=== PATIENT | female | born 1980 | race Caucasian/White ===

== ENCOUNTER → 2019-11-29 | Outpatient (CLI) | payer OTHER ==
[~2019-11-29] MED LIST: A-CILLIN500 MG PO; AMOXIL500 MG PO; AUGMENTIN 875 M1 TA1 PO; AUGMENTIN 875 M1 TAB PO; BACTRIM DS 8001 TA1 PO; CIPRO500 MG PO; CIPROFLOXACIN500 MG PO; CLARITIN-D 12 H1 TAB PO; CLARITIN10 MG PO; DAYPRO600 M1 PO; DIFLUCAN150 MG PO; FERROUS SULFAT325 MG PO; FLAGYL500 MG PO; FLEXERIL10 MG PO; K-DUR 20MEQ20 MEQ PO; KEFLEX500 MG PO; MOTRIN800 MG PO; NAPROSYN500 MG PO; NKHM; PEPCID20 MG PO; PERCOCET 325 MG1 TA2 PO; PERCOCET 325 MG1 TA3 PO; PRENATAL1 TA1 PO; PYRIDIUM200 MG PO; ROBAXIN750 MG PO; TRAMADOL HCL50 MG PO; TRIMOX500 MG PO; ULTRAM50 MG PO; VICODIN 5/500 505 MG PO; ZOFRAN ODT8 MG PO; ZOFRAN4 MG PO; Zofran4 MG PO
[2019-11-29 15:29] LABS: BASO % 0.5 % (0.0-1.0); EOS # 0.3 10*3/uL (0.0-0.4); EOS % 3.4 % (1.0-4.0); LYMPH # 2.3 10*3/uL (1.3-4.4); LYMPH % 30.3 % (27.0-41.0); MEAN CELL VOLUME 88.9 fl (81.0-99.0); MEAN CORPUSCULAR HGB 30.2 pg (27.0-31.0); MEAN CORPUSCULAR HGB CONC 33.9 g/dl (33.0-37.0); MEAN PLATELET VOLUME 9.7 fl (9.6-12.3); MONO # 0.4 10*3/uL (0.1-1.0); MONO % 5.5 % (3.0-9.0); NEUT # 4.6 10*3/uL (2.3-7.9); NEUT % 59.9 % (47.0-73.0); PLATELET COUNT AUTOMATED 285 10*3/uL (130-400); RED BLOOD COUNT 4.61 10*6/uL (4.10-5.10); RED CELL DISTRI WIDTH 12.5 % (0-14.5); WHITE BLOOD COUNT 7.6 10*3/uL (4.8-10.8)
[2019-11-29 15:47] LABS: ALBUMIN 3.3 gm/dl (3.1-4.5); ALKALINE PHOSPHATASE 64 U/L (45-117); BILIRUBIN, DIRECT < 0.1 mg/dL (0.0-0.2); BUN 13 mg/dl (7-24); CHLORIDE 107 mmol/L (98-107); CREATININE 1.06 mg/dL (0.55-1.02); POTASSIUM 3.9 mmol/L (3.5-5.1); SGOT/AST 18 IU/L (3-35); SGPT/ALT 23 U/L (12-78); SODIUM 137 mmol/L (136-145); TOTAL PROTEIN 7.5 gm/dL (6.4-8.2)
[2019-11-30 08:12] LABS: HEP B CORE AB, IGM Negative (Negative); HEPATITIS B SURFACE AG Negative (Negative); HEPATITIS C VIRUS ANTIBODY >11.0 s/co (0.0-0.9)
== END | disposition home or self-care (01) ==
LOC: LAB 14:50
PROVIDERS: Registered Nurse Critical Care Medicine
DX: F11.20 Opioid dependence, uncomplicated (principal)

== ENCOUNTER 2019-12-30 19:47 | Emergency (ER) | payer OTHER ==
[~2019-12-30] VITALS: Ht 167.6 cm; Wt 81.6 kg
[2019-12-30 22:47] LABS: BASO % 0.5 % (0.0-1.0); EOS # 0.2 10*3/uL (0.0-0.4); EOS % 4.1 % (1.0-4.0); HEMATOCRIT 38.8 % (37.0-47.0); LYMPH # 0.4 10*3/uL (1.3-4.4); LYMPH % 10.9 % (27.0-41.0); MEAN CELL VOLUME 90.7 fl (81.0-99.0); MEAN CORPUSCULAR HGB 29.9 pg (27.0-31.0); MEAN PLATELET VOLUME 9.3 fl (9.6-12.3); MONO # 0.3 10*3/uL (0.1-1.0); MONO % 7.6 % (3.0-9.0); NEUT % 76.9 % (47.0-73.0); PLATELET COUNT AUTOMATED 188 10*3/uL (130-400); RED BLOOD COUNT 4.28 10*6/uL (4.10-5.10); RED CELL DISTRI WIDTH 12.6 % (0-14.5)
[2019-12-30 23:05] LABS: ALBUMIN 3.2 gm/dl (3.1-4.5); ALKALINE PHOSPHATASE 126 U/L (45-117); BUN 13 mg/dl (7-24); CHLORIDE 105 mmol/L (98-107); CREATININE 1.01 mg/dL (0.55-1.02); POTASSIUM 3.8 mmol/L (3.5-5.1); SGOT/AST 116 IU/L (3-35); SGPT/ALT 107 U/L (12-78); SODIUM 134 mmol/L (136-145)
[2019-12-30 23:09] LABS: BILIRUBIN NEGATIVE; CLARITY CLOUDY (CLEAR); COLOR DARK YELLOW (YELLOW); GLUCOSE NEGATIVE; KETONE NEGATIVE; SPECIFIC GRAVITY > 1.030 (1.001-1.030)
[2019-12-30 23:10] LABS: BLOOD 2+ (NEGATIVE); LEUKO ESTERASE TRACE (NEGATIVE); NITRITE NEGATIVE (NEGATIVE); PH 5.5 (4.5-8.0)
[2019-12-30 23:16] LABS: BACTERIA 1+; CALCIUM OXALATE CRYSTALS 1+
[2019-12-31 03:10] VITALS: BP 111/71
== END 2019-12-31 03:20 | disposition home or self-care (01) ==
LOC: ED 19:47
PROVIDERS: Emergency Medicine
DX: R11.2 Nausea with vomiting, unspecified (principal); R05 Cough; R50.9 Fever, unspecified; F17.200 Nicotine dependence, unspecified, uncomplicated; Z91.040 Latex allergy status; Z79.899 Other long term (current) drug therapy; Z20.828 Contact with and (suspected) exposure to other viral communicable diseases

== ENCOUNTER → 2020-07-15 | Outpatient (CLI) | payer OTHER ==
[2020-07-15 18:18] LABS: BASO # 0.1 10*3/uL (0.0-0.1); BASO % 0.7 % (0.0-1.0); EOS # 0.2 10*3/uL (0.0-0.4); EOS % 2.6 % (1.0-4.0); HEMATOCRIT 41.8 % (37.0-47.0); LYMPH # 2.5 10*3/uL (1.3-4.4); LYMPH % 34.6 % (27.0-41.0); MEAN CELL VOLUME 91.1 fl (81.0-99.0); MEAN CORPUSCULAR HGB 30.5 pg (27.0-31.0); MEAN CORPUSCULAR HGB CONC 33.5 g/dl (33.0-37.0); MEAN PLATELET VOLUME 9.2 fl (9.6-12.3); MONO # 0.4 10*3/uL (0.1-1.0); NEUT # 4.2 10*3/uL (2.3-7.9); NEUT % 56.8 % (47.0-73.0); PLATELET COUNT AUTOMATED 353 10*3/uL (130-400); RED BLOOD COUNT 4.59 10*6/uL (4.10-5.10); RED CELL DISTRI WIDTH 12.1 % (0-14.5); WHITE BLOOD COUNT 7.4 10*3/uL (4.8-10.8)
[2020-07-15 18:27] LABS: BILIRUBIN Negative (Negative); BLOOD Negative (Negative); CLARITY Cloudy (Clear); COLOR Yellow (Yellow); GLUCOSE Negative (Negative); KETONE Trace (Negative); LEUKO ESTERASE Negative (Negative); NITRITE Negative (Negative); PH 5.5 (4.5-8.0); SPECIFIC GRAVITY >= 1.030 (1.001-1.030)
[2020-07-15 18:41] LABS: BACTERIA 1+; RBC 0-2 rbc/hpf (0-2)
[2020-07-15 18:42] LABS: MUCOUS TRACE
[2020-07-15 18:49] LABS: ALBUMIN 3.9 gm/dl (3.1-4.5); ALKALINE PHOSPHATASE 83 U/L (45-117); BILIRUBIN, DIRECT < 0.1 mg/dL (0.0-0.2); CHLORIDE 108 mmol/L (98-107); POTASSIUM 3.8 mmol/L (3.5-5.1); SGOT/AST 18 IU/L (3-35); SGPT/ALT 22 U/L (12-78); SODIUM 136 mmol/L (136-145); TOTAL PROTEIN 8.7 gm/dL (6.4-8.2)
[2020-07-15 18:51] LABS: BETA-HCG, QUANT < 1.0 mIU/mL (1-3)
[2020-07-16 09:07] LABS: HEP B CORE AB, IGM Negative (Negative); HEPATITIS B SURFACE AG Negative (Negative)
[2020-07-16 11:13] LABS: URINE AMPHETAMINES > 1000 (1000ng/ml); URINE BARBITURATES < 200 (200ng/ml); URINE BENZODIAZEPINES < 200 (200ng/ml); URINE CANNABINOIDS (THC) < 50 (50ng/ml); URINE COCAINE > 300 (300ng/ml); URINE METHADONE < 300 (300ng/ml); URINE OPIATES < 300 (300ng/ml)
[2020-07-16 11:18] LABS: URINE PHENCYCLIDINE < 25 (25ng/ml)
[2020-07-16 11:59] LABS: HEPATITIS C VIRUS ANTIBODY >11.0 s/co (0.0-0.9)
== END | disposition home or self-care (01) ==
LOC: LAB 16:54
PROVIDERS: ATTEND Physician Assistant
DX: F11.20 Opioid dependence, uncomplicated (principal)

== ENCOUNTER 2020-08-28 23:24 | Emergency (ER) | payer OTHER ==
[~2020-08-28] VITALS: Ht 170.1 cm; Wt 81.6 kg
[2020-08-28 23:57] VITALS: BP 140/86
[2020-08-28] MEDS ORDERED: BUPRENORPHINE-1 EAC2 SL (23:58)
== END 2020-08-29 00:03 | disposition left against medical advice (07) ==
LOC: ED 23:24
DX: F41.9 Anxiety disorder, unspecified (principal); F32.9 Major depressive disorder, single episode, unspecified; Z91.040 Latex allergy status; Z79.2 Long term (current) use of antibiotics

== ENCOUNTER 2020-11-14 00:11 | Emergency (ER) | payer OTHER ==
[~2020-11-14] VITALS: Ht 167.6 cm; Wt 77.1 kg
[~2020-11-14 00:11] MED LIST changes: +BUPRENORPHINE-1 EAC2 SL
[2020-11-14 00:15] VITALS: BP 125/78
== END 2020-11-14 01:03 | disposition left against medical advice (07) ==
LOC: ED 00:11
DX: F41.9 Anxiety disorder, unspecified (principal); Z53.21 Procedure and treatment not carried out due to patient leaving prior to being seen by health care provider

== ENCOUNTER 2020-11-30 18:28 | Emergency (ER) | payer OTHER ==
[~2020-11-30] VITALS: Ht 170.1 cm; Wt 86.2 kg
[2020-11-30 18:37] VITALS: BP 136/94
[2020-11-30] MEDS ORDERED: TRAZODONE50 MG PO (18:53)
[2020-11-30] MEDS ORDERED: LITHIUM CARBON150 MG PO (18:54)
[2020-11-30 19:12] LABS: BASO # 0.1 10*3/uL (0.0-0.1); BASO % 0.6 % (0.0-1.0); EOS # 0.1 10*3/uL (0.0-0.4); EOS % 1.3 % (1.0-4.0); HEMATOCRIT 39.1 % (37.0-47.0); LYMPH # 1.7 10*3/uL (1.3-4.4); LYMPH % 20.9 % (27.0-41.0); MEAN CELL VOLUME 89.9 fl (81.0-99.0); MEAN CORPUSCULAR HGB 29.7 pg (27.0-31.0); MEAN PLATELET VOLUME 9.7 fl (9.6-12.3); MONO # 0.4 10*3/uL (0.1-1.0); NEUT # 5.9 10*3/uL (2.3-7.9); NEUT % 71.7 % (47.0-73.0); PLATELET COUNT AUTOMATED 344 10*3/uL (130-400); RED BLOOD COUNT 4.35 10*6/uL (4.10-5.10); RED CELL DISTRI WIDTH 12.7 % (0-14.5); WHITE BLOOD COUNT 8.2 10*3/uL (4.8-10.8)
[2020-11-30 19:28] LABS: ALBUMIN 3.9 gm/dl (3.1-4.5); ALKALINE PHOSPHATASE 72 U/L (45-117); BUN 10 mg/dl (7-24); CHLORIDE 107 mmol/L (98-107); CREATININE 1.41 mg/dL (0.55-1.02); POTASSIUM 3.9 mmol/L (3.5-5.1); SGOT/AST 26 IU/L (3-35); SGPT/ALT 36 U/L (12-78); SODIUM 138 mmol/L (136-145); TOTAL PROTEIN 8.1 gm/dL (6.4-8.2); TROPONIN I < 0.015 ng/ml (<0.045)
== END 2020-11-30 19:46 | disposition left against medical advice (07) ==
LOC: ED 18:28
PROVIDERS: Internal Medicine
DX: R07.89 Other chest pain (principal); R06.02 Shortness of breath; R61 Generalized hyperhidrosis; F17.200 Nicotine dependence, unspecified, uncomplicated; Z91.040 Latex allergy status; Z79.899 Other long term (current) drug therapy; Z53.29 Procedure and treatment not carried out because of patient's decision for other reasons

== ENCOUNTER 2021-03-23 14:19 | Emergency (ER) | payer OTHER ==
[~2021-03-23] VITALS: Wt 77.1 kg
[~2021-03-23 14:19] MED LIST changes: +LITHIUM CARBON150 MG PO; +TRAZODONE50 MG PO
[2021-03-23 14:41] VITALS: BP 122/67
[2021-03-23 16:52] LABS: BILIRUBIN Negative (Negative); BLOOD 3+ (Negative); CLARITY Turbid (Clear); COLOR Orange (Yellow); GLUCOSE Negative (Negative); KETONE Negative (Negative); LEUKO ESTERASE Trace (Negative); NITRITE Negative (Negative); URINE AMPHETAMINES < 1000 (1000ng/ml); URINE BARBITURATES < 200 (200ng/ml); URINE BENZODIAZEPINES > 200 (200ng/ml); URINE CANNABINOIDS (THC) < 50 (50ng/ml); URINE COCAINE > 300 (300ng/ml); URINE METHADONE < 300 (300ng/ml); URINE OPIATES < 300 (300ng/ml)
[2021-03-23 16:59] LABS: URINE PHENCYCLIDINE < 25 (25ng/ml)
[2021-03-23 17:03] LABS: BACTERIA TRACE; RBC TNTC rbc/hpf (0-2); WBC 0-2 wbc/hpf (0-5)
[2021-03-23 17:13] LABS: BASO % 0.5 % (0.0-1.0); EOS # 0.4 10*3/uL (0.0-0.4); EOS % 4.8 % (1.0-4.0); LYMPH # 1.6 10*3/uL (1.3-4.4); LYMPH % 18.4 % (27.0-41.0); MEAN CELL VOLUME 91.9 fl (81.0-99.0); MEAN CORPUSCULAR HGB 30.2 pg (27.0-31.0); MEAN CORPUSCULAR HGB CONC 32.9 g/dl (33.0-37.0); MEAN PLATELET VOLUME 9.6 fl (9.6-12.3); MONO # 0.7 10*3/uL (0.1-1.0); MONO % 7.7 % (3.0-9.0); NEUT % 68.4 % (47.0-73.0); PLATELET COUNT AUTOMATED 364 10*3/uL (130-400); RED BLOOD COUNT 3.81 10*6/uL (4.10-5.10); RED CELL DISTRI WIDTH 13.2 % (0-14.5); WHITE BLOOD COUNT 8.7 10*3/uL (4.8-10.8)
[2021-03-23 17:30] LABS: ACT PARTIAL THROMBO TIME 24.4 SECONDS (20.0-32.1); ALBUMIN 3.3 gm/dl (3.1-4.5); CREATININE 1.4 mg/dL (0.55-1.02); POTASSIUM 3.4 mmol/L (3.5-5.1); TOTAL PROTEIN 7.6 gm/dL (6.4-8.2)
== END 2021-03-23 18:45 | disposition home or self-care (01) ==
LOC: ED 14:19
PROVIDERS: Physician Assistant
DX: K12.0 Recurrent oral aphthae (principal); L30.9 Dermatitis, unspecified; Z91.040 Latex allergy status; Z79.899 Other long term (current) drug therapy

== ENCOUNTER 2021-08-20 15:54 | Emergency (ER) | payer OTHER ==
[~2021-08-20] VITALS: Ht 170.1 cm; Wt 72.6 kg
[2021-08-20 16:00] VITALS: BP 127/67
[2021-08-20 16:54] LABS: BASO % 0.5 % (0.0-1.0); EOS # 0.2 10*3/uL (0.0-0.4); EOS % 2.7 % (1.0-4.0); HEMATOCRIT 39.3 % (37.0-47.0); LYMPH # 1.4 10*3/uL (1.3-4.4); LYMPH % 25.1 % (27.0-41.0); MEAN CELL VOLUME 89.5 fl (81.0-99.0); MEAN CORPUSCULAR HGB 29.8 pg (27.0-31.0); MEAN CORPUSCULAR HGB CONC 33.3 g/dl (33.0-37.0); MEAN PLATELET VOLUME 9.8 fl (9.6-12.3); MONO # 0.5 10*3/uL (0.1-1.0); MONO % 8.1 % (3.0-9.0); NEUT # 3.5 10*3/uL (2.3-7.9); NEUT % 63.2 % (47.0-73.0); PLATELET COUNT AUTOMATED 290 10*3/uL (130-400); RED BLOOD COUNT 4.39 10*6/uL (4.10-5.10); RED CELL DISTRI WIDTH 13.5 % (0-14.5); WHITE BLOOD COUNT 5.6 10*3/uL (4.8-10.8)
[2021-08-20 17:15] LABS: ALKALINE PHOSPHATASE 70 U/L (45-117); BUN 9 mg/dl (7-24); CHLORIDE 110 mmol/L (98-107); CREATININE 0.94 mg/dL (0.55-1.02); LIPASE 78 U/L (73-393); POTASSIUM 3.6 mmol/L (3.5-5.1); SGOT/AST 17 IU/L (3-35); SGPT/ALT 21 U/L (12-78); SODIUM 139 mmol/L (136-145); TOTAL PROTEIN 7.6 gm/dL (6.4-8.2)
[2021-08-20 17:18] LABS: B-hCG (QUALITATIVE) NEGATIVE (NEGATIVE)
[2021-08-20 18:07] LABS: BILIRUBIN 1+ (Negative); BLOOD Negative (Negative); CLARITY Cloudy (Clear); COLOR Dark Yellow (Yellow); GLUCOSE Negative (Negative); KETONE Trace (Negative); LEUKO ESTERASE Trace (Negative); NITRITE Negative (Negative); PH 5.5 (4.5-8.0); SPECIFIC GRAVITY >= 1.030 (1.001-1.030)
[2021-08-20 18:33] LABS: CALCIUM OXALATE CRYSTALS 2+; EPITHELIAL CELLS TNTC; RBC 0-2 rbc/hpf (0-2)
[2021-08-20 18:34] LABS: BACTERIA 2+
== END 2021-08-20 18:09 | disposition home or self-care (01) ==
LOC: ED 15:54
PROVIDERS: Emergency Medicine
DX: K52.9 Noninfective gastroenteritis and colitis, unspecified (principal); Z91.040 Latex allergy status; Z79.899 Other long term (current) drug therapy; F17.200 Nicotine dependence, unspecified, uncomplicated

== ENCOUNTER → 2023-04-11 | Outpatient (CLI) | payer OTHER ==
[2023-04-11 11:52] LABS: BASO # 0.1 10*3/uL (0.0-0.1); BASO % 0.6 % (0.0-1.0); EOS # 0.4 10*3/uL (0.0-0.4); EOS % 3.9 % (1.0-4.0); HEMATOCRIT 43.4 % (37.0-47.0); LYMPH # 1.8 10*3/uL (1.3-4.4); LYMPH % 17.1 % (27.0-41.0); MEAN CELL VOLUME 95.2 fl (81.0-99.0); MEAN CORPUSCULAR HGB 29.8 pg (27.0-31.0); MEAN CORPUSCULAR HGB CONC 31.3 g/dl (33.0-37.0); MEAN PLATELET VOLUME 9.5 fl (9.6-12.3); MONO # 0.5 10*3/uL (0.1-1.0); MONO % 4.4 % (3.0-9.0); NEUT # 7.6 10*3/uL (2.3-7.9); NEUT % 73.7 % (47.0-73.0); PLATELET COUNT AUTOMATED 357 10*3/uL (130-400); RED BLOOD COUNT 4.56 10*6/uL (4.10-5.10); RED CELL DISTRI WIDTH 13.2 % (0-14.5); WHITE BLOOD COUNT 10.3 10*3/uL (4.8-10.8)
[2023-04-11 12:21] LABS: ALKALINE PHOSPHATASE 68 U/L (46-116); BUN 8 mg/dl (9-23); CHLORIDE 107 mmol/L (98-107); FREE T4 0.91 ng/dl (0.89-1.76); POTASSIUM 3.5 mmol/L (3.4-5.1); SGPT/ALT 27 U/L (5-49); T3 UPTAKE 22.1 % (22.4-36.7); TOTAL PROTEIN 7.6 gm/dL (6.0-8.0)
== END | disposition home or self-care (01) ==
LOC: LAB 10:54
PROVIDERS: ATTEND Psychiatry & Neurology Psychiatry
DX: Z51.81 Encounter for therapeutic drug level monitoring (principal); Z79.899 Other long term (current) drug therapy

== ENCOUNTER → 2023-06-08 | Outpatient (CLI) | payer OTHER ==
[2023-06-08 08:57] LABS: ALKALINE PHOSPHATASE 70 U/L (46-116); BUN 6 mg/dl (9-23); CHLORIDE 106 mmol/L (98-107); POTASSIUM 3.7 mmol/L (3.4-5.1); SGPT/ALT 40 U/L (5-49); TOTAL PROTEIN 8.1 gm/dL (6.0-8.0)
== END | disposition home or self-care (01) ==
LOC: LAB 08:11
PROVIDERS: ATTEND Nurse Practitioner Family
DX: Z51.81 Encounter for therapeutic drug level monitoring (principal); E03.9 Hypothyroidism, unspecified; Z79.899 Other long term (current) drug therapy

== ENCOUNTER → 2023-07-19 | Outpatient (CLI) | payer OTHER ==
[2023-07-19 12:48] LABS: ALKALINE PHOSPHATASE 60 U/L (46-116); BUN 7 mg/dl (9-23); CHLORIDE 107 mmol/L (98-107); POTASSIUM 3.6 mmol/L (3.4-5.1); SGPT/ALT 27 U/L (5-49); TOTAL PROTEIN 7.2 gm/dL (6.0-8.0)
[2023-07-19 12:57] LABS: VITAMIN D, 25-HYDROXY 24.5 ng/mL (30-100)
== END | disposition home or self-care (01) ==
LOC: LAB 12:09
PROVIDERS: ATTEND Internal Medicine Nephrology
DX: E83.9 Disorder of mineral metabolism, unspecified (principal); N17.9 Acute kidney failure, unspecified

== ENCOUNTER → 2023-09-05 | Outpatient (CLI) | payer OTHER | END | disposition home or self-care (01) | LOC: US 08-22 13:00 → CARD 08-22 14:00 | PROVIDERS: ATTEND Internal Medicine Nephrology | DX: I34.0 Nonrheumatic mitral (valve) insufficiency (principal); N17.9 Acute kidney failure, unspecified; N18.31 Chronic kidney disease, stage 3a; R60.9 Edema, unspecified; R06.02 Shortness of breath ==

== ENCOUNTER → 2024-01-18 | Outpatient (CLI) | payer OTHER ==
[~2024-01-18] MED LIST changes: +BUPROPION HYDR200 M2 PO; +LEVOTHYROXINE150 MCG PO; +LITHIUM CARBON600 MG PO; +ROPINIROLE HY0.25 MG PO; +SLOW FE137 MG PO
[2024-01-18 13:19] LABS: BASO # 0.1 10*3/uL (0.0-0.1); BASO % 0.8 % (0.0-1.0); EOS # 0.3 10*3/uL (0.0-0.4); EOS % 3.4 % (1.0-4.0); HEMATOCRIT 35.1 % (37.0-47.0); LYMPH # 1.9 10*3/uL (1.3-4.4); LYMPH % 23.6 % (27.0-41.0); MEAN CELL VOLUME 95.4 fl (81.0-99.0); MEAN CORPUSCULAR HGB 29.6 pg (27.0-31.0); MEAN CORPUSCULAR HGB CONC 31.1 g/dl (33.0-37.0); MONO # 0.4 10*3/uL (0.1-1.0); MONO % 4.9 % (3.0-9.0); NEUT # 5.4 10*3/uL (2.3-7.9); NEUT % 67.2 % (47.0-73.0); PLATELET COUNT AUTOMATED 452 10*3/uL (130-400); RED BLOOD COUNT 3.68 10*6/uL (4.10-5.10); RED CELL DISTRI WIDTH 14.4 % (0-14.5)
[2024-01-18 13:42] LABS: TOTAL PROTEIN 7.5 gm/dL (6.0-8.0)
== END | disposition home or self-care (01) ==
LOC: LAB 12:58
PROVIDERS: ATTEND Psychiatry & Neurology Psychiatry
DX: Z51.81 Encounter for therapeutic drug level monitoring (principal); Z79.899 Other long term (current) drug therapy

== ENCOUNTER 2024-04-27 15:01 | Emergency (ER) | payer OTHER ==
[~2024-04-27] VITALS: Ht 170.1 cm; Wt 70.3 kg
[2024-04-27 15:14] VITALS: BP 157/92
[2024-04-27] MEDS ORDERED: NORETHINDRONE AC5 MG PO (15:16)
[2024-04-27] MEDS ORDERED: ACETAMINOPHEN 325 MG TAB PO ONE (15:25)
[2024-04-27] MEDS ORDERED: AVPAK AZITHROM250 M1 PO ×2 (16:43→19:57)
[2024-04-27] MEDS ORDERED: AZITHROMYCIN 250 MG TAB PO ONE (16:45)
== END 2024-04-27 16:54 | disposition home or self-care (01) ==
LOC: ED 15:01
DX: J18.9 Pneumonia, unspecified organism (principal); Z20.822 Contact with and (suspected) exposure to COVID-19; F32.A Depression, unspecified; Z91.040 Latex allergy status; Z90.49 Acquired absence of other specified parts of digestive tract; Z98.890 Other specified postprocedural states

== ENCOUNTER → 2024-05-30 | Outpatient (CLI) | payer OTHER ==
[~2024-05-30] MED LIST changes: +AVPAK AZITHROM250 M1 PO; +NORETHINDRONE AC5 MG PO
[2024-05-30 12:22] LABS: ALKALINE PHOSPHATASE 58 U/L (46-116); BUN 6 mg/dl (9-23); CHLORIDE 108 mmol/L (98-107); CHOLESTEROL 202 mg/dL (<200); LDL CHOLESTEROL 125 mg/dL (9-159); POTASSIUM 4.3 mmol/L (3.4-5.1); SGPT/ALT 17 U/L (5-49); TOTAL PROTEIN 7.6 gm/dL (6.0-8.0); TRIGLYCERIDES 151 mg/dl (<150)
[2024-05-30 12:54] LABS: BASO # 0.1 10*3/uL (0.0-0.1); BASO % 0.6 % (0.0-1.0); EOS # 0.4 10*3/uL (0.0-0.4); EOS % 3.1 % (1.0-4.0); HEMATOCRIT 45.7 % (37.0-47.0); MEAN CELL VOLUME 100.9 fl (81.0-99.0); MEAN CORPUSCULAR HGB 31.6 pg (27.0-31.0); MEAN CORPUSCULAR HGB CONC 31.3 g/dl (33.0-37.0); MEAN PLATELET VOLUME 9.6 fl (9.6-12.3); MONO # 0.6 10*3/uL (0.1-1.0); MONO % 4.8 % (3.0-9.0); NEUT # 9.7 10*3/uL (2.3-7.9); NEUT % 75.2 % (47.0-73.0); PLATELET COUNT AUTOMATED 392 10*3/uL (130-400); RED BLOOD COUNT 4.53 10*6/uL (4.10-5.10); RED CELL DISTRI WIDTH 12.5 % (0-14.5); WHITE BLOOD COUNT 12.9 10*3/uL (4.8-10.8)
== END | disposition home or self-care (01) ==
LOC: LAB 11:09
PROVIDERS: ATTEND Nurse Practitioner Family
DX: Z13.228 Encounter for screening for other metabolic disorders (principal); Z11.4 Encounter for screening for human immunodeficiency virus [HIV]; I10 Essential (primary) hypertension; D50.9 Iron deficiency anemia, unspecified; E03.9 Hypothyroidism, unspecified; Z87.898 Personal history of other specified conditions

== ENCOUNTER → 2024-07-03 | Outpatient (CLI) | payer OTHER ==
[2024-07-03 14:36] LABS: BASO # 0.1 10*3/uL (0.0-0.1); BASO % 0.5 % (0.0-1.0); EOS # 0.4 10*3/uL (0.0-0.4); EOS % 3.7 % (1.0-4.0); HEMATOCRIT 43.4 % (37.0-47.0); MEAN CELL VOLUME 98.2 fl (81.0-99.0); MEAN CORPUSCULAR HGB 31.9 pg (27.0-31.0); MEAN CORPUSCULAR HGB CONC 32.5 g/dl (33.0-37.0); MEAN PLATELET VOLUME 9.4 fl (9.6-12.3); MONO # 0.5 10*3/uL (0.1-1.0); MONO % 5.4 % (3.0-9.0); NEUT # 6.4 10*3/uL (2.3-7.9); NEUT % 67.9 % (47.0-73.0); PLATELET COUNT AUTOMATED 290 10*3/uL (130-400); RED BLOOD COUNT 4.42 10*6/uL (4.10-5.10); RED CELL DISTRI WIDTH 12.5 % (0-14.5); WHITE BLOOD COUNT 9.4 10*3/uL (4.8-10.8)
[2024-07-03 15:05] LABS: ALKALINE PHOSPHATASE 53 U/L (46-116); BUN 10 mg/dl (9-23); CHLORIDE 110 mmol/L (98-107); POTASSIUM 3.5 mmol/L (3.4-5.1); SGPT/ALT 15 U/L (5-49); TOTAL PROTEIN 7.5 gm/dL (6.0-8.0)
== END | disposition home or self-care (01) ==
LOC: LAB 14:13
PROVIDERS: ATTEND Psychiatry & Neurology Psychiatry
DX: Z51.81 Encounter for therapeutic drug level monitoring (principal); Z79.899 Other long term (current) drug therapy

== ENCOUNTER → 2024-08-23 | Outpatient (CLI) | payer OTHER ==
[2024-08-23 11:21] LABS: BILIRUBIN Negative (Negative); BLOOD Negative (Negative); CLARITY Cloudy (Clear); COLOR Yellow (Yellow); GLUCOSE Negative (Negative); KETONE Trace (Negative); LEUKO ESTERASE Trace (Negative); NITRITE Negative (Negative); SPECIFIC GRAVITY 1.015 (1.001-1.030); UROBILINOGEN 0.2 E.U./dl (0.0-1.0)
[2024-08-23 11:27] LABS: EPITHELIAL CELLS 16-20
[2024-08-23 11:28] LABS: BACTERIA 3+
[2024-08-23 11:56] LABS: VITAMIN D, 25-HYDROXY 36.2 ng/mL (30-100)
== END | disposition home or self-care (01) ==
LOC: LAB 10:51
PROVIDERS: ATTEND Internal Medicine Nephrology
DX: N18.31 Chronic kidney disease, stage 3a (principal); E83.9 Disorder of mineral metabolism, unspecified

== ENCOUNTER → 2024-09-09 | Outpatient (CLI) | payer OTHER | END | disposition home or self-care (01) | LOC: LAB 09:40 | PROVIDERS: ATTEND Nurse Practitioner Family | DX: E03.9 Hypothyroidism, unspecified (principal) ==

== ENCOUNTER → 2024-09-24 | Outpatient (CLI) | payer OTHER | END | disposition home or self-care (01) | LOC: LAB 08:21 | PROVIDERS: ATTEND Psychiatry & Neurology Psychiatry | DX: Z51.81 Encounter for therapeutic drug level monitoring (principal); Z79.899 Other long term (current) drug therapy ==

== ENCOUNTER → 2024-10-24 | Outpatient (CLI) | payer OTHER ==
[~2024-10-24] MED LIST changes: +CLOTRIMAZOLE TR10 MG PO; +ESKALITH,LITHI300 MG PO; +FAMOTIDINE20 M1 PO; +FEROSUL325 M1 PO; +HYDROCHLOROTH12.5 M3 PO; +LEVETIRACETAM500 MG PO; +LEVOTHYROXINE175 MCG PO; +METOPROLOL SUCC25 M2 PO; +NATURE'S BLEND F1 MG PO; +OLOPATADINE HCL5 ML OP; +Ondansetron8 MG PO; +SLYND4 MG PO; +Synthroid,Lev150 MCG PO; +VITAMIN D350 MCG PO
[2024-10-24 13:09] LABS: SGPT/ALT 15 U/L (5-49); VALPROIC ACID (DEPAKENE) 45.5 ug/ml (50-100)
[2024-10-24 13:27] LABS: MEAN CELL VOLUME 100.2 fl (81.0-99.0); MEAN CORPUSCULAR HGB 32.2 pg (27.0-31.0); MEAN PLATELET VOLUME 10.2 fl (9.6-12.3); NUCLEATED RED BLOOD CELL 0.0 % (0.0-0.0); NUCLEATED RED BLOOD CELL 0.0 10*3/uL (0.0-0.0); PLATELET COUNT AUTOMATED 281 10*3/uL (130-400); RED CELL DISTRI WIDTH 12.0 % (0-14.5)
[2024-10-24 13:44] LABS: MANUAL DIFF REFLEX YES
[2024-10-24 13:47] LABS: BASOPHILS 1 % (0-1); PLATELET SUFFICIENCY NORMAL (NORMAL)
== END | disposition home or self-care (01) ==
LOC: LAB 11:26
PROVIDERS: ATTEND Psychiatry & Neurology Psychiatry
DX: Z51.81 Encounter for therapeutic drug level monitoring (principal); Z79.899 Other long term (current) drug therapy

== ENCOUNTER → 2024-11-05 | Outpatient (CLI) | payer OTHER ==
[2024-11-05 14:55] LABS: BILIRUBIN Negative (Negative); BLOOD Negative (Negative); CLARITY Turbid (Clear); COLOR Yellow (Yellow); KETONE Trace (Negative); LEUKO ESTERASE 1+ (Negative); NITRITE Negative (Negative); PH 5.5 (4.5-8.0); SPECIFIC GRAVITY 1.020 (1.001-1.030); UROBILINOGEN 0.2 E.U./dl (0.0-1.0)
[2024-11-05 15:08] LABS: BACTERIA 1+; EPITHELIAL CELLS 41-50; MUCOUS 1+; RBC 0-2 rbc/hpf (0-2)
[2024-11-05 15:19] LABS: SGPT/ALT 13 U/L (5-49); VALPROIC ACID (DEPAKENE) 72.7 ug/ml (50-100)
[2024-11-05 15:33] LABS: BUN 11 mg/dl (9-23); SGPT/ALT 14 U/L (5-49)
== END | disposition home or self-care (01) ==
LOC: LAB 14:29
PROVIDERS: Psychiatry & Neurology Psychiatry; ATTEND Internal Medicine Nephrology
DX: N17.9 Acute kidney failure, unspecified (principal); Z51.81 Encounter for therapeutic drug level monitoring; Z79.899 Other long term (current) drug therapy

== ENCOUNTER → 2024-11-26 | Outpatient (CLI) | payer OTHER ==
[2024-11-26 10:57] LABS: BUN 19 mg/dl (9-23); SGPT/ALT 13 U/L (5-49)
== END | disposition home or self-care (01) ==
LOC: LAB 09:40
PROVIDERS: ATTEND Internal Medicine Nephrology
DX: E87.6 Hypokalemia (principal)

== ENCOUNTER → 2024-11-28 | Outpatient (CLI) | payer OTHER ==
[2024-11-28 15:20] LABS: FREE T4 1.39 ng/dl (0.89-1.76); SGPT/ALT 11 U/L (5-49); T3 UPTAKE 26.6 % (22.4-36.7); THYROXINE (T4) TOTAL 9.3 ug/dl (4.5-10.9)
== END | disposition home or self-care (01) ==
LOC: LAB 13:33
PROVIDERS: ATTEND Nurse Practitioner Family
DX: I10 Essential (primary) hypertension (principal); M25.50 Pain in unspecified joint; R06.02 Shortness of breath; R41.0 Disorientation, unspecified; R41.3 Other amnesia; R42 Dizziness and giddiness; R60.9 Edema, unspecified; E03.9 Hypothyroidism, unspecified; E61.1 Iron deficiency; F32.9 Major depressive disorder, single episode, unspecified

== ENCOUNTER → 2024-11-30 | Outpatient (CLI) | payer OTHER ==
[2024-12-02 08:06] LABS: ANTI-DSDNA ANTIBODIES 2 IU/mL (0-9); ANTI-RNP ANTIBODIES <0.2 AI (0.0-0.9); ANTICHROMATIN ANTIBODIES <0.2 AI (0.0-0.9); ANTISCLERODERMA-70 AB <0.2 AI (0.0-0.9)
== END | disposition home or self-care (01) ==
LOC: LAB 09:58
PROVIDERS: ATTEND Nurse Practitioner Family
DX: I10 Essential (primary) hypertension (principal); E03.9 Hypothyroidism, unspecified; E61.1 Iron deficiency; F32.9 Major depressive disorder, single episode, unspecified; M25.50 Pain in unspecified joint; R06.02 Shortness of breath; R41.0 Disorientation, unspecified; R41.3 Other amnesia; R42 Dizziness and giddiness; R60.9 Edema, unspecified

== ENCOUNTER 2024-12-03 21:50 | Emergency (ER) | payer OTHER ==
[2024-12-03 21:55] VITALS: BP 162/89
== END 2024-12-03 22:04 | disposition left against medical advice (07) ==
LOC: ED 21:50
DX: R56.9 Unspecified convulsions (principal); F17.210 Nicotine dependence, cigarettes, uncomplicated; Z53.29 Procedure and treatment not carried out because of patient's decision for other reasons; Z98.890 Other specified postprocedural states; Z90.49 Acquired absence of other specified parts of digestive tract; Z91.040 Latex allergy status

== ENCOUNTER 2024-12-11 03:16 | Emergency (ER) | payer OTHER ==
[~2024-12-11] VITALS: Ht 170.1 cm; Wt 72.6 kg
[2024-12-11] MEDS ORDERED: LORazepam 1 MG TAB PO ONE (03:20)
[2024-12-11 03:21] VITALS: BP 156/88
[2024-12-11 03:33] LABS: BASO # 0.1 10*3/uL (0.0-0.1); BASO % 0.8 % (0.0-1.0); EOS # 0.2 10*3/uL (0.0-0.4); EOS % 3.2 % (1.0-4.0); MEAN CELL VOLUME 98.6 fl (81.0-99.0); MEAN CORPUSCULAR HGB 32.2 pg (27.0-31.0); MEAN PLATELET VOLUME 9.0 fl (9.6-12.3); MONO # 0.6 10*3/uL (0.1-1.0); MONO % 8.5 % (3.0-9.0); NEUT # 3.4 10*3/uL (2.3-7.9); NEUT % 51.8 % (47.0-73.0); NUCLEATED RED BLOOD CELL 0.0 % (0.0-0.0); NUCLEATED RED BLOOD CELL 0.0 10*3/uL (0.0-0.0); PLATELET COUNT AUTOMATED 231 10*3/uL (130-400); RED CELL DISTRI WIDTH 11.6 % (0-14.5)
[2024-12-11 03:53] LABS: BUN 14 mg/dl (9-23); ETHYL ALCOHOL < 3.0 mg/dl (<3)
== END 2024-12-11 03:39 | disposition left against medical advice (07) ==
LOC: ED 03:16
PROVIDERS: Internal Medicine
DX: R56.9 Unspecified convulsions (principal); Z53.29 Procedure and treatment not carried out because of patient's decision for other reasons; F17.200 Nicotine dependence, unspecified, uncomplicated; Z79.899 Other long term (current) drug therapy; Z91.040 Latex allergy status; Z90.49 Acquired absence of other specified parts of digestive tract; Z98.890 Other specified postprocedural states

== ENCOUNTER → 2025-02-18 | Outpatient (CLI) | payer OTHER | END | disposition home or self-care (01) | LOC: LAB 15:55 | PROVIDERS: ATTEND Internal Medicine Nephrology | DX: Z20.2 Contact with and (suspected) exposure to infections with a predominantly sexual mode of transmission (principal) ==

== ENCOUNTER → 2025-02-28 | Outpatient (CLI) | payer OTHER ==
[2025-03-02 15:06] LABS: FREE VALPROIC ACID (DEPAKOTE) 5.2 ug/mL (6.0-22.0)
== END | disposition home or self-care (01) ==
LOC: LAB 14:08
PROVIDERS: ATTEND Nurse Practitioner Family
DX: Z79.899 Other long term (current) drug therapy (principal)

== ENCOUNTER → 2025-03-13 | Outpatient (CLI) | payer OTHER ==
[2025-03-13 13:10] LABS: BASO # 0.0 10*3/uL (0.0-0.1); BASO % 0.5 % (0.0-1.0); EOS # 0.2 10*3/uL (0.0-0.4); EOS % 3.1 % (1.0-4.0); MEAN CELL VOLUME 96.7 fl (81.0-99.0); MEAN CORPUSCULAR HGB 32.3 pg (27.0-31.0); MEAN PLATELET VOLUME 9.2 fl (9.6-12.3); MONO # 0.5 10*3/uL (0.1-1.0); MONO % 7.2 % (3.0-9.0); NEUT # 3.6 10*3/uL (2.3-7.9); NEUT % 56.9 % (47.0-73.0); NUCLEATED RED BLOOD CELL 0.0 % (0.0-0.0); NUCLEATED RED BLOOD CELL 0.0 10*3/uL (0.0-0.0); PLATELET COUNT AUTOMATED 248 10*3/uL (130-400); RED CELL DISTRI WIDTH 12.2 % (0-14.5)
[2025-03-13 13:56] LABS: BUN 14 mg/dl (9-23); SGPT/ALT 17 U/L (5-49)
[2025-03-13 13:58] LABS: FREE T4 1.08 ng/dl (0.89-1.76); LDL CHOLESTEROL 148.0 mg/dL (9-159)
== END | disposition home or self-care (01) ==
LOC: LAB 12:31
PROVIDERS: Internal Medicine; ATTEND Internal Medicine Nephrology
DX: I12.9 Hypertensive chronic kidney disease with stage 1 through stage 4 chronic kidney disease, or unspecified chronic kidney disease (principal); N18.31 Chronic kidney disease, stage 3a